=== PATIENT | female | born 1945 | race Hispanic/Latino ===

== ENCOUNTER 2019-11-02 12:33 | Outpatient (CLI) | payer MEDICARE ==
[2019-11-02] MEDS ORDERED: Iopamidol-370 76% 500 ML 1 ML ONE (13:20)
--- NOTE | 2019-11-02 15:21 | CT ---
CT ABDOMEN AND PELVIS WITH AND WITHOUT CONTRAST: 11/02/19 Postcontrast images were obtained in a portal venous phase and delayed venous phase following urogram protocol. INDICATIONS: UTI. Adrenal mass and ovarian cyst. History of ovarian cancer. Comparison is made to a CT abdomen and pelvis dated 10/21/11. That exam described a left adrenal mass measuring 2.3 cm. It also showed gallbladder distention with evidence of gallbladder stones and sludg e. It described a 3 cm cystic mass in the left pelvis which appeared to be ovarian. FINDINGS: Lung bases clear. Liver, spleen and pancreas appear unremarkable. The gallbladder is distended and there are numerous small densities in the neck of the gallbladder co nsistent with small stones and/or gravel. No evidence of pericholecystic edema. The left adrenal mass is again noted. This adrenal mass is not significantly changed since the prior study, continuing to measure approximately 2.2 cm. The precontrast density is recorded at 2 Hounsf[address] d units which would indicate a benign adenoma. Kidneys show symmetric enhancement. Tiny low density foci are seen in the cortex of both kidneys. The se foci are subcentimeter and too small to adequately characterize. There is no hydronephrosis. No e vidence of urinary tract calculus. Ureters appear normal. The urinary bladder is mildly distended. The urinary bladder wall is mildly thickened. There is a cystic mass in the left pelvis consistent with left ovarian etiology. This cystic mass now measures 6 cm diameter. There is no free fluid. Uterus appears unremarkable. Small and large bowel loops unremarkable. Aorta shows atherosclerotic calcifications without aneurysm . No evidence of adenopathy. Osseous structures unremarkable. IMPRESSION: 1. Cystic mass in the left pelvis has increased in size now measuring 6 to 7 cm in diameter. Thi s appears to be ovarian in origin. 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 Th ere is no evidence of ascites or evidence of mucinous ovarian carcinoma. 2. The urinary bladder is mildly distended with mildly thickened bladder wall. 3. The left adrenal mass is stable from 2011 and has densities indicating benign adenoma. 4. Gallbladder is distended with evidence of gallstones and/or sludge in the neck of the gallbla dder. POS: [facility]
== END 2019-11-02 12:34 | disposition home or self-care (01) ==
LOC: BICCT 12:33
PROVIDERS: ATTEND Urology
DX: E27.8 Other specified disorders of adrenal gland (principal); N83.202 Unspecified ovarian cyst, left side; R19.00 Intra-abdominal and pelvic swelling, mass and lump, unspecified site; K80.20 Calculus of gallbladder without cholecystitis without obstruction; N32.89 Other specified disorders of bladder; Z85.43 Personal history of malignant neoplasm of ovary; Z87.440 Personal history of urinary (tract) infections
CPT/HCPCS: 74178; 82565; Q9967

== ENCOUNTER 2020-06-16 13:32 | Emergency (ER) | payer OTHER, MEDICARE | END 2020-06-16 15:32 | disposition home or self-care (01) | LOC: ERS 13:32 | DX: S82.001A Unspecified fracture of right patella, initial encounter for closed fracture (principal); E11.9 Type 2 diabetes mellitus without complications; I10 Essential (primary) hypertension; W01.0XXA Fall on same level from slipping, tripping and stumbling without subsequent striking against object, initial encounter ==